=== PATIENT | male | born 1985 | race Caucasian/White ===

== ENCOUNTER 2017-07-14 18:24 | Emergency (ER) | payer SELFPAY ==
[~2017-07-14] VITALS: Ht 172.7 cm; Wt 80.0 kg
[2017-07-14 19:55] LABS: CLARITY URINE CLEAR (CLEAR); COLOR URINE YELLOW (YELLOW); KETONES URINE NEGATIVE (NEGATIVE); LEUKOCYTE ESTERASE URINE NEGATIVE (NEGATIVE); NITRITE URINE NEGATIVE (NEGATIVE); OCCULT BLOOD URINE NEGATIVE (NEGATIVE); PROTEIN URINE NEGATIVE (NEGATIVE); SPECIFIC GRAVITY URINE 1.004 (1.005-1.030); UROBILINOGEN URINE 0.2 E.U./dL (0.2-1.0)
[2017-07-14 20:20] LABS: *AMPHETAMINES SCREEN URINE NEGATIVE (NEGATIVE); *BARBITURATES SCREEN URINE NEGATIVE (NEGATIVE); *BENZODIAZEPINES SCREEN URINE NEGATIVE (NEGATIVE)
[2017-07-14 20:21] LABS: *COCAINE SCREEN URINE NEGATIVE (NEGATIVE); CANNABINOID URINE SCREEN NEGATIVE (NEGATIVE); METHADONE URINE SCREEN NEGATIVE (NEGATIVE); OPIATES URINE SCREEN NEGATIVE (NEGATIVE); PHENCYCLIDINE URINE SCREEN NEGATIVE (NEGATIVE)
[2017-07-14 20:37] LABS: BASOPHILS % 0.9 % (0.0-2.0); EOSINOPHILS % 2.6 % (0.0-5.0); HEMATOCRIT. 41.4 % (42.0-52.0); HEMOGLOBIN. 14.5 g/dL (14.0-18.0); LYMPHOCYTES % 22.7 % (20.0-50.0); MEAN CORPUSCULAR VOLUME 91.4 fL (80.0-94.0); MONOCYTES % 10.4 % (2.0-8.0); NEUTROPHILS % 63.4 % (40.0-76.0); PLATELET 305 x1000/uL (130-400); RED BLOOD CELL COUNT 4.53 mill/uL (4.7-6.1); RED CELL DISTRIBUTION WIDTH 13.4 % (11.6-14.6)
[2017-07-14 20:38] LABS: CHLORIDE 108 mEq/L (98-107)
[2017-07-14 20:42] LABS: ETHANOL BLOOD < 10 mg/dL
[2017-07-15 01:08] LABS: CLARITY URINE CLEAR (CLEAR); COLOR URINE YELLOW (YELLOW); KETONES URINE TRACE (NEGATIVE); LEUKOCYTE ESTERASE URINE NEGATIVE (NEGATIVE); NITRITE URINE NEGATIVE (NEGATIVE); OCCULT BLOOD URINE NEGATIVE (NEGATIVE); PH URINE 6.5 (4.5-8.0); PROTEIN URINE NEGATIVE (NEGATIVE); SPECIFIC GRAVITY URINE 1.024 (1.005-1.030); UROBILINOGEN URINE 0.2 E.U./dL (0.2-1.0)
[2017-07-15 01:18] LABS: *AMPHETAMINES SCREEN URINE PRESUMTIVE POSITIVE (NEGATIVE); *BARBITURATES SCREEN URINE NEGATIVE (NEGATIVE); CANNABINOID URINE SCREEN PRESUMTIVE POSITIVE (NEGATIVE); METHADONE URINE SCREEN NEGATIVE (NEGATIVE); OPIATES URINE SCREEN NEGATIVE (NEGATIVE); PHENCYCLIDINE URINE SCREEN NEGATIVE (NEGATIVE)
[2017-07-15 01:19] LABS: *BENZODIAZEPINES SCREEN URINE NEGATIVE (NEGATIVE); *COCAINE SCREEN URINE NEGATIVE (NEGATIVE)
[2017-07-15 10:00] VITALS: BP 113/65
== END 2017-07-15 10:53 | disposition home or self-care (01) ==
LOC: ER 19:26
DX: F91.8 Other conduct disorders (principal); F19.10 Other psychoactive substance abuse, uncomplicated; F20.9 Schizophrenia, unspecified; F31.9 Bipolar disorder, unspecified; F17.200 Nicotine dependence, unspecified, uncomplicated; Z91.19 Patient's noncompliance with other medical treatment and regimen
CPT/HCPCS: 36415; 80053; 80305; 80307; 80329; 81003; 85025; 99285; G0482

== ENCOUNTER 2023-03-17 14:23 | Emergency (ER) | payer MEDICAID ==
[~2023-03-17] VITALS: Ht 175.3 cm; Wt 124.7 kg
[2023-03-17 14:30] VITALS: O2SAT 96
[2023-03-17] MEDS ORDERED: LORAZEPAM 1MG TABLET PO ONE (14:45)
[2023-03-17 15:01] LABS: BASOPHILS % 0.5 % (0.0-2.0); HEMATOCRIT. 50.1 % (42.0-52.0); HEMOGLOBIN. 17.6 g/dL (14.0-18.0); MEAN CORPUSCULAR HGB CONC 35.1 g/dL (31.0-37.0); MEAN CORPUSCULAR VOLUME 91.3 fL (80.0-94.0); MEAN PLATELET VOLUME 7.9 fl (7.4-10.4); MONOCYTES % 8.7 % (2.0-8.0); NEUTROPHILS % 72.8 % (40.0-76.0); PLATELET 268 x1000/uL (130-400); RED BLOOD CELL COUNT 5.49 mill/uL (4.7-6.1); RED CELL DISTRIBUTION WIDTH 13.3 % (11.6-14.6); WHITE BLOOD COUNT 13.2 x1000/uL (4.5-11.0)
[2023-03-17 15:15] LABS: ALANINE AMINOTRANSFERASE 107 IU/L (10-49); ALBUMIN 4.6 g/dL (3.2-4.8); ASPARTATE AMINOTRANSFERASE 61 IU/L (<34); BILIRUBIN TOTAL 1.4 mg/dL (0.1-1.0); CALCIUM 9.6 mg/dL (8.7-10.4); CARBON DIOXIDE 21 mEq/L (21-32); CHLORIDE 105 mEq/L (98-107); CREATININE 1.1 mg/dL (0.6-1.3); GLUCOSE 79 mg/dL (70-105); POTASSIUM 3.2 mEq/L (3.5-5.1); PROTEIN TOTAL 8.7 g/dL (6.0-8.3); SODIUM 139 mEq/L (136-145); UREA NITROGEN BLOOD 17 mg/dL (9-23)
[2023-03-17 15:22] LABS: ETHANOL BLOOD < 10 mg/dL (<10)
[2023-03-17 18:41] LABS: CLARITY URINE CLEAR (CLEAR); COLOR URINE YELLOW (YELLOW); GLUCOSE URINE NEGATIVE (NEGATIVE); KETONES URINE NEGATIVE (NEGATIVE); LEUKOCYTE ESTERASE URINE NEGATIVE (NEGATIVE); NITRITE URINE NEGATIVE (NEGATIVE); OCCULT BLOOD URINE NEGATIVE (NEGATIVE); PROTEIN URINE NEGATIVE (NEGATIVE); SPECIFIC GRAVITY URINE 1.003 (1.005-1.030); UROBILINOGEN URINE 0.2 E.U./dL (0.2-1.0)
[2023-03-17 18:50] LABS: *AMPHETAMINES SCREEN URINE NEGATIVE (NEGATIVE); *BARBITURATES SCREEN URINE NEGATIVE (NEGATIVE); *BENZODIAZEPINES SCREEN URINE NEGATIVE (NEGATIVE); *COCAINE SCREEN URINE NEGATIVE (NEGATIVE); CANNABINOID URINE SCREEN NEGATIVE (NEGATIVE); ECSTASY MDMA SCREEN URINE NEGATIVE (NEGATIVE); METHADONE URINE SCREEN Neg (NEGATIVE); OPIATES URINE SCREEN NEGATIVE (NEGATIVE); PHENCYCLIDINE URINE SCREEN NEGATIVE (NEGATIVE)
[2023-03-18] MEDS ORDERED: OLANZAPINE 5MG TABLET ODT PO SCH (11:00)
[2023-03-18] MEDS ORDERED: POTASSIUM CHLORIDE 20MEQ TABLET SR PO ONE (17:15)
[2023-03-18 18:54] VITALS: BP 124/82; PULSE 70; RESP 14; TEMP 98.4
== END 2023-03-18 19:20 ==
LOC: ER 14:23
DX: F29 Unspecified psychosis not due to a substance or known physiological condition (principal); F15.10 Other stimulant abuse, uncomplicated; Z20.822 Contact with and (suspected) exposure to COVID-19; Z86.59 Personal history of other mental and behavioral disorders
CPT/HCPCS: 36415; 80053; 80305; 80320; 81003; 85025; 87426; 99285; G0480

== ENCOUNTER 2023-05-13 23:22 | Emergency (ER) | payer MEDICAID ==
[~2023-05-13] VITALS: Ht 177.8 cm; Wt 114.0 kg
[2023-05-14 01:39] VITALS: O2SAT 100
[2023-05-14] MEDS: MIDAZOLAM HCL 2 MG/2 ML VIAL IM ONE (01:39)
[2023-05-14] MEDS: SULFAMETHOXAZOLE/TRIMETHOPRIM 800/160MG TABLET PO ONE (01:41)
[2023-05-14] MEDS: TETANUS, DIPHTHERIA, PERTUSSIS VAC/PF 0.5ML (>10YR OLD) IM ONE (01:41)
[2023-05-14 02:02] LABS: BASOPHILS % 0.7 % (0.0-2.0); DIFFERENTIAL COMMENT 0; EOSINOPHILS % 0.6 % (0.0-5.0); HEMATOCRIT. 44.6 % (42.0-52.0); LYMPHOCYTES % 22.5 % (20.0-50.0); MEAN CORPUSCULAR HEMOGLOBIN 33.1 pg (28.0-32.0); MEAN CORPUSCULAR VOLUME 92.2 fL (80.0-94.0); MEAN PLATELET VOLUME 8.6 fl (7.4-10.4); MONOCYTES % 8.6 % (2.0-8.0); NEUTROPHILS % 67.6 % (40.0-76.0); PLATELET 300 x1000/uL (130-400); RED BLOOD CELL COUNT 4.83 mill/uL (4.7-6.1); RED CELL DISTRIBUTION WIDTH 13.2 % (11.6-14.6); WHITE BLOOD COUNT 14.2 x1000/uL (4.5-11.0)
[2023-05-14 02:15] LABS: CLARITY URINE CLEAR (CLEAR); COLOR URINE DARK YELLOW (YELLOW); GLUCOSE URINE NEGATIVE (NEGATIVE); KETONES URINE 1+ (NEGATIVE); LEUKOCYTE ESTERASE URINE NEGATIVE (NEGATIVE); NITRITE URINE NEGATIVE (NEGATIVE); OCCULT BLOOD URINE NEGATIVE (NEGATIVE); PROTEIN URINE 2+ (NEGATIVE); SPECIFIC GRAVITY URINE 1.029 (1.005-1.030)
[2023-05-14 02:22] LABS: *AMPHETAMINES SCREEN URINE PRESUMPTIVE POSITIVE (NEGATIVE); *BARBITURATES SCREEN URINE NEGATIVE (NEGATIVE); *BENZODIAZEPINES SCREEN URINE NEGATIVE (NEGATIVE); *COCAINE SCREEN URINE NEGATIVE (NEGATIVE); CANNABINOID URINE SCREEN PRESUMPTIVE POSITIVE (NEGATIVE); ECSTASY MDMA SCREEN URINE CONF.TEST INDICATED (NEGATIVE); METHADONE URINE SCREEN Neg (NEGATIVE); OPIATES URINE SCREEN NEGATIVE (NEGATIVE); PHENCYCLIDINE URINE SCREEN NEGATIVE (NEGATIVE)
[2023-05-14 02:23] LABS: ACETAMINOPHEN < 2 ug/mL (10-30); ALANINE AMINOTRANSFERASE 69 IU/L (10-49); ASPARTATE AMINOTRANSFERASE 94 IU/L (<34); BILIRUBIN TOTAL 1.4 mg/dL (0.1-1.0); CALCIUM 9.1 mg/dL (8.7-10.4); CARBON DIOXIDE 25 mEq/L (21-32); CHLORIDE 107 mEq/L (98-107); CREATININE 1.1 mg/dL (0.6-1.3); ETHANOL BLOOD < 10 mg/dL (<10); GLUCOSE 89 mg/dL (70-105); PROTEIN TOTAL 8.6 g/dL (6.0-8.3); SODIUM 141 mEq/L (136-145); UREA NITROGEN BLOOD 12 mg/dL (9-23)
[2023-05-14 04:02] LABS: RBC URINE 0-2 /hpf (0-2); WBC URINE 0-2 /hpf (0-2)
[2023-05-14 04:04] LABS: BACTERIA URINE NONE SEEN; SQUAMOUS EPITHELIAL CELL URINE 1+ /lpf (RARE/1+)
[2023-05-14] MEDS: OLANZAPINE 5MG TABLET ODT PO SCH (17:00)
[2023-05-15 08:21] VITALS: TEMP 98.5
[2023-05-15 14:17] VITALS: BP 116/68; PULSE 58; RESP 16
[2023-05-15] MEDS: POTASSIUM CHLORIDE 20MEQ TABLET SR PO ONE (15:50)
== END 2023-05-15 15:12 | disposition short-term general hospital (02) ==
LOC: ER 23:22
DX: F98.9 Unspecified behavioral and emotional disorders with onset usually occurring in childhood and adolescence (principal); F15.10 Other stimulant abuse, uncomplicated; Z20.822 Contact with and (suspected) exposure to COVID-19; Z86.59 Personal history of other mental and behavioral disorders
CPT/HCPCS: 80053; 80305; 81003; 80307; 80329; 80320; 85025; 36415; 73060; 73120; 99285; 87426; 90715; 96372; J2250; G0480